=== PATIENT | female | born 1990 | race Caucasian/White ===

== ENCOUNTER 2025-03-09 10:12 | Outpatient (REF) | payer MEDICARE, MEDICAID, SELFPAY ==
--- OUTSIDE RECORDS SUMMARY | 2025-03-09 12:06 | XMS_ITS ---
Author Name [facility] Organization Unknown History of Medication Use Medication Directions Dispensed Refills Start Date End Date Stat us ibuprofen 400 mg tablet 400 mg as needed by oral route. 09/27/2024 active Tylenol Extra Strength 500 mg tablet 1000 mg as needed by oral route. 09/27/2024 active rosuvastatin 10 mg tablet 10 mg every day by oral route. 05/06/2016 active Zyrtec 10 mg tablet 10 mg every day by oral route. 05/06/2013 active Centrum 18 mg-400 mcg tablet 1 tablet every day by oral route. 05/06/2009 active CoQ-10 100 mg capsule 200 mg every day b y oral route. 05/06/2009 active clonazepam 1 mg tablet TAKE 1 TABLET BY MOUTH TWICE A DAY active divalproex ER 500 mg tablet,extended release 24 hr TAKE 1 TABLET BY MOUTH TWICE A DAY active fluticasone propionate 50 mcg/actuation nasal spray,suspension APPLY 2 APPLICATION IN THE NOSTRILS DAILY NEEDED active levothyroxine 88 mcg tablet TAKE 1 TABLET BY MOUTH DAILY PT DUE FOR LABS FOR FUTURE REFILLS active olanzapine 10 mg tablet TAKE 1 TABLET BY MOUTH EVERY DAY AT NIGHT active rosuvastatin 5 mg tablet TAKE 1 TABLET BY MOUTH EVERY DAY active Allergies Allergen Reaction Severity Comment Documented Date Source Statu s ABILIFY OTHER severe ENS_AONECT AMOXICILLIN HIVES moderate to severe ENS_AONEC T HALDOL OTHER moderate to severe ENS_AONECT PRILOSEC OTHER severe ENS_AONECT ZITHROMAX HIVES moderate to severe ENS_AONECT Problems Problem Status Onset Date Problem Type Date of Resoluti on Source Traumatic dislocation of joint of foot active 2024-10-04 ProblemAct ENS_AONECT Encounters Encounter Type Encounter Reason Primary Diagnosis Location Date Ambulatory [facility] 10/05/2024 Ambulatory [facility] [place] 10/05/2024 Ambulatory [facility] [place] 10/01/2024 Ambulatory [facility] [place] 10/01/2024 Ambulatory [facility] [place] 10/01/2024 Ambulatory [facility] [place] 10/01/2024 Ambulatory [facility] [place] 10/01/2024 Ambulatory [facility] [place] 09/30/2024 Ambulatory [facility] [place] 09/30/2024
--- NOTE | 2025-03-10 08:51 | MHC.AU.HA3 ---
Hearing Instrument Follow-Up- Binaural Date of Visit: 03/10/25 Right Ear: Jhonny, Model, Color, Serial Number: [employer] Zafarv AI [address]-R SN: [id number] Software Development Coordinator Repair Warranty: 08/18/2025 Software Development Coordinator Loss and Damage Warranty: 08/18/2025 [facility] Service Plan: N/A Battery Size: Rechargeable Refrigeration Person/Slim Tube: Earmold/Dome/CShell/SlimTip:Acrylic canal power mold SN: [id number] Type of Wax Guard: HearClear Dispensed By: [facility] Date of Fitting: May 2022 Left Ear: Jhonny, Model, Color, Serial Number: Soumya Evolv AI [address]-R SN: [id number] Software Development Coordinator Repair Warranty: 08/18/2025 Software Development Coordinator Loss and Damage Warranty: 08/18/2025 [facility] Service Plan: N/A Battery Size: Rechargeable Refrigeration Person/Slim Tube: Earmold/Dome/CShell/SlimTip: Acrylic canal power mold SN: [id number] Type of Wax Guard: HearClear Dispensed By: [facility] Date of Fitting: May 2022 Follow-Up Summary: New patient, from [facility], transferring care as [facility] closed their community aud[facility] clinic. No records available for review. HAs/EMs, delivery clerk, cord, and wall plug dropped off 03/09/2025 reporting not holding a charge. Assessed on 03/10/2025. Called Soumy[employer] to obtain purchase date and warranty information. Rechargeable batteries likely need to be replaced. Called mom (Desi) - advised HAs need to be sent to ground crew linesman and requested that she request records from [facility]. Mom reported she already requested them, will likely be faxed today. Sent HAs/EMs to [employer]. Customer Solutions Specialist, cord, and wall plug in Repair Drawer. Recommendations: Patient will be contacted when materials have arrived. Signature: Provider: Brianna Pearce, [facility]
== END 2025-03-09 10:13 | disposition home or self-care (01) ==
LOC: HO.HAP 10:12
PROVIDERS: Visit Provider Nurse Practitioner
DX: Z13.89 Encounter for screening for other disorder (principal)

== ENCOUNTER 2025-03-30 10:22 | Outpatient (REF) | payer MEDICARE, MEDICAID, SELFPAY ==
--- OUTSIDE RECORDS SUMMARY | 2025-03-30 12:55 | XMS_ITS | Clinical Summary ---
Author Organization [facility], Address [address] [place] [address] [place] [address] Phone Care Team Providers Care Captain Room Service Name Role Phone Meseret Dobson NP Primary Care Provider Allergies Active Allergy Reactions Criticality Noted Date Comments Aripiprazole 04/06/2021 Amoxicillin 04/06/2021 Haloperidol 04/06/2021 Omeprazole 04/06/2021 Azithromycin 04/06/2021 Medications clonazePAM (KlonoPIN) 1 MG tablet 03/16/2021 Active divalproex (DEPAKOTE) 500 MG 24 hr tablet 03/20/2021 Active fluticasone (FLONASE) 50 MCG/ACT nasal spray 02/11/2021 Active levothyroxine (SYNTHROID, LEVOTHROID) 75 MCG tablet 03/01/2021 Active lithium (ESKALITH) 450 MG CR tablet 02/22/2021 Ac tive OLANZapine (ZyPREXA) 7.5 MG tablet 02/26/2021 Active Active Problems Problem Noted Date Diagnosed Date Acquired vasopressin resistance 02/02/2022 Overview (02/04/2024): Replacing diagnoses that were inactivated after the 02/04/24 Regulatory Import Stage 3a chronic kidney disease 04/07/2021 Bipolar disorder 04/07/2021 Hyperprolactinemia 04/06/2021 Hypothyroidism 04/06/2021 Urinary incontinence 04/06/2021 Immunizations Immunization Administration Dates Next Due DTaP 08/25/1993, 0,03/05/1989,1988,11/03 HPV, Quadrivalent 10/27/2007,08/26/2007 Hep B, Unspecified 12/31/2001,08/26/2001, 001 HiB 11/27/1989 IPV 08/25/1993, 0,03/05/1989,1988,10/1988 Influenza Whole 02/17/2019, 9,01/22/2008,02/27/2007,02/03 MMR 08/08/1995,11/27/1989 Meningococcal, Unspecified 08/30/2006 Pneumococcal Polysaccharide 04/04/2010 Tdap 01/27/2018,08/30/2006 Tetanus Toxoid, Unspecified 08/26/2001 Social History Tobacco Use Types Packs/Day Years Used Date Smoking Tobacco: Never Alcohol Use Standard Drinks/Week Comments Defer 0 (1 standard drink = 0.6 oz pur e alcohol) Comments Unknown Sex and Gender Information Value Date Recorded Sex Assigned at Not on file Legal Sex Female 4:18 PM EST Gender Identity Not on file Sexual Orientation Not on file Last Filed Vital Signs Vital Sign Reading Time Taken Comments Blood Pressure 110/62 02/02/2022 4:35 PM EDT Pulse 72 02/02/2022 4:35 PM EDT Temperature - - Respiratory Rate - - Oxygen Saturation - - Inhaled Oxygen Concentration - - Weight - - Height - - Body Mass Index - - Plan of Treatment Health Maintenance Due Date Last Done Comments Pneumococcal Vaccine: Peds ( 0 to 5 Years) and At-Risk Patients (6 to 49 Years) (2 of 2 - PCV) 04/04/2011 04/04/2010 Influenza Vaccine (#1) 2025 9, 02/04/2009, 01/22/2008, Additional history exists Hepatitis B Vaccine Completed 12/31/2001, 08/26/2001, 08/14/2000 Insurance [facility] Care Teams Captain Room Service Relationship Specialty Start Date End Date Meseret Dobson NP [address] [place] [phone] PCP - General Nurse Practitioner 03/24/21
== END 2025-03-30 10:23 | disposition home or self-care (01) ==
LOC: HO.HAP 10:22
PROVIDERS: Visit Provider Nurse Practitioner
DX: Z46.1 Encounter for fitting and adjustment of hearing aid (principal); H90.3 Sensorineural hearing loss, bilateral
CPT/HCPCS: 92593